=== PATIENT | male | born 1945 | race Hispanic/Latino ===

== ENCOUNTER 2016-05-14 12:36 | Emergency (ER) | payer MEDICARE ==
[2016-05-14 13:07] VITALS: BP 150/72; RESP 16; TEMP 98.6; O2SAT 99
[2016-05-14] MEDS ORDERED: Promethazine/Cod 6.25mg-10mg/5ml Syr UD PO STA (13:27)
[2016-05-14] MEDS ORDERED: Promethazine/Cod 6.25mg-10mg/5ml Syr UD ONE (13:36)
[2016-05-14 13:55] LABS: BASO # 0.1 K/uL (0.0-0.2); BASO % 0.7 % (0.0-2.0); EOS # 0.2 K/uL (0.0-0.7); EOS % 2.2 % (0.0-4.0); HEMATOCRIT 35.7 % (35.0-51.0); LYMPH # 2.1 K/uL (1.0-4.3); LYMPH % 20.1 % (20.0-40.0); MEAN CELL VOLUME 91.4 fl (80.0-94.0); MEAN CORPUSCULAR HEMOGLOBIN 29.7 pg (27.0-31.0); MEAN CORPUSCULAR HGB CONC 32.5 g/dL (33.0-37.0); MEAN PLATELET VOLUME 7.9 fl (7.2-11.7); MONO # 1.2 K/uL (0.0-0.8); MONO % 11.1 % (0.0-10.0); NEUT % 65.9 % (50.0-75.0); RED CELL DISTRIBUTION WIDTH 14.5 % (11.5-14.5); WHITE BLOOD COUNT 10.6 K/uL (4.8-10.8)
--- NOTE | 2016-05-14 13:59 | ED PDOC ---
HPI: Chest Pain Time Seen by Provider: 05/14/16 13:06 Chief Complaint (Nursing): Chest Pain Chief Complaint (Provider): Chest pain History Per: Patient History/Exam Limitations: no limitations Onset/Duration Of Symptoms: Days (5x) Current Symptoms Are (Timing): Still Present Severity: Moderate Associated Symptoms: denies: Dyspnea, Syncope Additional Complaint(s): 70 year old male patient with a pertinent medical history of HTN and diabetes presents to the ED with complaints of left sided chest pain and a cough that started 5x days ago. He reports that he has phlegm, and his cough is productive of green sputum. The chest pain worsens when he coughs. He denies having shortness of breath, dizziness, syncope, and leg swelling. PMD: [facility] Past Medical History Reviewed: Historical Data, Nursing Documentation, Vital Signs Vital Signs: Last Vital Signs Temp 98.6 F 05/14/16 13:00 Pulse 77 05/14/16 16:24 Resp 16 05/14/16 13:00 BP 150/72 05/14/16 13:00 Pulse Ox 99 05/14/16 16:24 - Medical History PMH: Diabetes (type I and II), HTN, Hypercholesterolemia, Chronic Kidney Disease Denies: CAD, CVA - Surgical History Surgical History: Appendectomy Denies: CABG - Family History Family History: States: Unknown Family Hx - Social History Alcohol: None Drugs: Denies - Home Medications Home Medications: Ambulatory Orders Medication Instructions Recorded Ciprofloxacin HCl [Cipro] 500 mg PO BID #14 tab 12/13/14 SITagliptin [Januvia] 50 mg PO DAILY #0 tab 12/13/14 cloNIDine [clonidine HCl] 0.1 mg PO BID #0 tab 12/13/14 Diphenhydramine Hydrochlorid 50 mg PO Q6 #20 cap 01/04/15 [Benadryl] Albuterol HFA [Ventolin HFA 90 2 puff IH [id number] PRN #1 inh 05/14/16 mcg/actuation (8 g)] Nitrofurantoin Macrocrystals 100 mg PO BID #14 cap 05/14/16 [Macrobid] Promethazine/Codeine 5 ml PO Q6 #100 ml 05/14/16 [Phenergan/Codeine Oral Syrup] - Allergies Allergies/Adverse Reactions: Allergies Allergy/AdvReac Type Severity Reaction Status Date / Time No Known Allergies Allergy Verified 03/10/15 19:00 DEION Risk Score for UA/NSTEMI - DEION Risk Score Age > 64: YES 3 or more CAD Risk Factors: YES Known CAD (Stenosis greater than 50%): NO Aspirin use in past 7 days: NO Severe Angina: NO EKG ST changes greater than 0.5mm: NO Positive Cardiac Marker: NO DEION Score: 2 Risk %: 8% Wells Criteria for PE - Wells Criteria for Pulmonary Embolism Clinical Signs and Symptoms of DVT: No P.E is #1 Diagnosis, or Equally Likely: No Heart Rate >100: No Immobilization at least 3 days;Surgery previous 4 weeks: No Previous, objectively diagnosed PE or DVT: No Hemoptysis: No Malignancy w/treatment within 6 months, or palliative: No Total Score: 0 Review of Systems ROS Statement: Except As Marked, All Systems Reviewed And Found Negative Constitutional: Negative for: Fever Cardiovascular: Positive for: Chest Pain Respiratory: Positive for: Cough, Sputum (green). Negative for: Shortness of Breath Musculoskeletal: Negative for: Leg Pain (no leg swelling) Neurological: Negative for: Dizziness, Other (syncope) Physical Exam - Reviewed Nursing Documentation Reviewed: Yes Vital Signs Reviewed: Yes - Physical Exam Appears: Positive for: Well, Non-toxic, No Acute Distress Head Exam: Positive for: ATRAUMATIC, NORMOCEPHALIC Skin: Positive for: Normal Color, Warm, Dry Cardiovascular/Chest: Positive for: Regular Rate, Rhythm. Negative for: Chest Non Tender (left side chest wall is tender to palpation) Respiratory: Positive for: Normal Breath Sounds. Negative for: Respiratory Distress Gastrointestinal/Abdominal: Positive for: Normal Exam, Soft. Negative for: Tenderness Extremity: Positive for: Normal ROM. Negative for: Tenderness (no leg tenderness), Swelling (no leg swelling) Neurologic/Psych: Positive for: Alert, Oriented (3x) - Laboratory Results Result Diagrams: 05/14/16 13:45 05/14/16 13:45 Urine dip results: Positive for: Leukocyte Esterase, Blood - ECG ECG: Positive for: Interpreted By Me, Viewed By Me ECG Rhythm: Positive for: Normal QRS, Normal ST Segment, Sinus Rhythm. Negative for: ST/T Changes Rate: 77 O2 Sat by Pulse Oximetry: 99 (RA) Pulse Ox Interpretation: Normal - Radiology X-Ray: Viewed By Me, Read By Radiologist X-Ray Interpretation: No Acute Disease Medical Decision Making Medical Decision Makin:06 Initial impression: 70 year old male with chest pain and a cough. Differential diagnoses include but are not limited to bronchitis, pneumonia, and musculoskeletal chest pain. Less than likely but still considered: ACS Initial plan: * XRay chest 2 views * EKG * b-type natriuretic peptide * BMP * troponin I * udip * CBC with differential * phenergan/codeine 5ml PO * toradol 30mg IM * US transvaginal * reevaluation Scribe Attestation: Documented by Maria Luisa Manzo, acting as a scribe for Angelina Quezada MD. Provider Scribe Attestation: All medical record entries made by the Scribe were at my direction and personally dictated by me. I have reviewed the chart and agree that the record accurately reflects my personal performance of the history, physical exam, medical decision making, and the department course for this patient. I have also personally directed, reviewed, and agree with the discharge instructions and disposition. Disposition - Clinical Impression Clinical Impression: UTI (urinary tract infection), Chest pain - Patient ED Disposition Is Patient to be Admitted: No Doctor Will See Patient In The: Office Counseled Patient/Family Regarding: Studies Performed, Diagnosis, Need For Followup - Disposition Referrals: Zelalem Lewis MD [Family Provider] - Disposition: Routine/Home Disposition Time: 16:40 Condition: GOOD Additional Instructions: Follow up with your PCP in 2-3 days. Return for worsening. Prescriptions: Albuterol HFA [Ventolin HFA 90 mcg/actuation (8 g)] 2 puff IH [id number] PRN #1 inh PRN Reason: Cough Nitrofurantoin Macrocrystals [Macrobid] 100 mg PO BID #14 cap Promethazine/Codeine [Phenergan/Codeine Oral Syrup] 5 ml PO Q6 #100 ml Instructions: Urinary Tract Infection in Men (ED), Acute Bronchitis (ED)
--- NOTE | 2016-05-14 13:59 | RAD ---
HISTORY: chest pain COMPARISON: No prior. TECHNIQUE: Chest PA and lateral FINDINGS: LUNGS: No active pulmonary disease. PLEURA: No significant pleural effusion identified. No pneumothorax apparent. CARDIOVASCULAR: Normal. OSSEOUS STRUCTURES: No significant abnormalities. VISUALIZED UPPER ABDOMEN: Normal. OTHER FINDINGS: None. IMPRESSION: No active disease.
[2016-05-14 14:04] LABS: CALCIUM 9.2 mg/dL (8.4-10.2); POTASSIUM 4.9 MMOL/L (3.6-5.0)
[2016-05-14 14:16] LABS: TROPONIN I 0.014 ng/mL (0.00-0.120)
[2016-05-14 14:41] VITALS: PULSE 77
--- NOTE | 2016-05-15 08:20 | CARD ---
APPROVED REPORT EKG Measurement Heart [id number] OH [id number] <Conclusion> Normal sinus rhythm Left axis deviation Abnormal ECG
== END 2016-05-14 16:51 | disposition home or self-care (01) ==
LOC: H.ER 12:36
DX: R07.9 Chest pain, unspecified (principal); N39.0 Urinary tract infection, site not specified; E78.00 Pure hypercholesterolemia, unspecified; I12.9 Hypertensive chronic kidney disease with stage 1 through stage 4 chronic kidney disease, or unspecified chronic kidney disease; E10.9 Type 1 diabetes mellitus without complications; Z79.4 Long term (current) use of insulin; N18.9 Chronic kidney disease, unspecified; R05 Cough
CPT/HCPCS: 71020; 80048; 83880; 84484; 85025; 93005; 96372; 99283; J1885

== ENCOUNTER 2016-12-10 06:26 | Observation (INO) | payer MEDICARE, MEDICAID ==
[2016-12-10] MEDS ORDERED: Sodium Chloride 0.9% 500 ML IV STA (07:35)
--- NOTE | 2016-12-10 07:39 | ED PDOC ---
HPI: Chest Pain History Per: Patient History/Exam Limitations: no limitations <Rajan Dominguez - Last Filed: 12/10/16 09:11> <Cassius Townsend - Last Filed: 12/10/16 09:25> Time Seen by Provider: 12/10/16 07:16 Chief Complaint (Nursing): Chest Pain Additional Complaint(s): 71 y/o M with a PMHx of HTN, DM and HLD complaining of chest pain that began 2 days ago, is constant, pressure-like, sub-sternal, non-radiating and aggravated with movement. Pt reports feeling anxious about family in [place]. Pt denies recent trauma, fever, SOB, cough, abdominal pain, N/V, acid reflux or change in bowel movement. NKDA PMHX: HTN, DM, HLD, BPH and nephropathy. PSHx: appendectomy in 2001. FHx: extensive Hx of HTN and DM. SHx: No tobacco, alcohol or recreational drugs. (Rjaan Dominguez) Supervising Attending Note <Rajan Dominguez - Last Filed: 12/10/16 09:11> - Supervising Attending Note The Documented history was done by the: Physician Offset Duplicating Machine Operator The documented physical exam was done by the: Physician Offset Duplicating Machine Operator The documented procedures were done by the: Physician Offset Duplicating Machine Operator - Attestation: I have personally seen and examined this patient.: Yes I have fully participated in the care of the patient.: Yes I have reviewed all pertinent clinical information: Yes <Cassius Townsend - Last Filed: 12/10/16 09:25> - Notes: Notes:: Chest pain 2 days (Cassius Townsend) Past Medical History - Medical History PMH: Diabetes (type I and II), HTN, Hypercholesterolemia, Chronic Kidney Disease Denies: CAD, CVA - Surgical History Surgical History: Appendectomy Denies: CABG - Family History Family History: States: Unknown Family Hx <Rajan Dominguez - Last Filed: 12/10/16 09:11> <Cassius Townsend - Last Filed: 12/10/16 09:25> Vital Signs: Last Vital Signs Temp 98.4 F 12/10/16 06:39 Pulse 73 12/10/16 06:39 Resp 16 12/10/16 06:39 BP 157/55 H 12/10/16 06:39 Pulse Ox 99 12/10/16 09:13 - Home Medications Home Medications: Ambulatory Orders Medication Instructions Recorded SITagliptin [Januvia] 50 mg PO DAILY #0 tab 12/13/14 cloNIDine [clonidine HCl] 0.1 mg PO BID #0 tab 12/13/14 Albuterol HFA [Ventolin HFA 90 2 puff IH [id number] PRN #1 inh 05/14/16 mcg/actuation (8 g)] - Allergies Allergies/Adverse Reactions: Allergies Allergy/AdvReac Type Severity Reaction Status Date / Time No Known Allergies Allergy Verified 03/10/15 19:00 Curb-65 Severity Score - CURB-65 Severity Score Confusion: No Respiratory Rate greater than/equal to 30: No Systolic BP <90 or Diastolic BP less than/equal 60mmHg: No Age >64: Yes Curb-65 Score: 1 Percentage 30-day mortality: 2.7% <Rajan Dominguez - Last Filed: 12/10/16 09:11> Wells Criteria for PE - Wells Criteria for Pulmonary Embolism Clinical Signs and Symptoms of DVT: No P.E is #1 Diagnosis, or Equally Likely: No Heart Rate >100: No Immobilization at least 3 days;Surgery previous 4 weeks: No Previous, objectively diagnosed PE or DVT: No Hemoptysis: No Malignancy w/treatment within 6 months, or palliative: No Total Score: 0 <Rajan Dominguez - Last Filed: 12/10/16 09:11> Review of Systems Constitutional: Negative for: Fever, Weakness, Malaise Eyes: Negative for: Pain ENT: Negative for: Ear Pain, Nose Congestion, Throat Pain Cardiovascular: Positive for: Chest Pain. Negative for: Palpitations, Light Headedness Respiratory: Negative for: Cough, Shortness of Breath, Hemoptysis, SOB with Exertion Gastrointestinal: Negative for: Nausea, Vomiting, Abdominal Pain, Diarrhea, Constipation Genitourinary Male: Negative for: Dysuria, Frequency Musculoskeletal: Negative for: Neck Pain, Shoulder Pain, Arm Pain Skin: Negative for: Rash Neurological: Negative for: Weakness, Numbness, Change in Speech, Confusion, Dizziness Psych: Positive for: Anxiety. Negative for: Psychosis, Suicidal ideation, Withdrawal <Rajan Dominguez Last Filed: 12/10/16 09:11> Cardiovascular: Positive for: Chest Pain <Cassius Townsend - Last Filed: 12/10/16 09:25> Physical Exam - Reviewed Vital Signs Reviewed: Yes - Physical Exam Appears: Positive for: Well, Non-toxic, No Acute Distress Head Exam: Positive for: ATRAUMATIC, NORMAL INSPECTION Skin: Positive for: Normal Color Eye Exam: Positive for: Normal appearance, PERRL ENT: Positive for: Normal ENT Inspection Neck: Positive for: Normal, Supple Cardiovascular/Chest: Positive for: Regular Rate, Rhythm Respiratory: Positive for: Normal Breath Sounds Gastrointestinal/Abdominal: Positive for: Normal Exam, Bowel Sounds, Soft. Negative for: Tenderness, Distended, Guarding Neurologic/Psych: Positive for: Alert, Oriented <Rajan Dominguez - Last Filed: 12/10/16 09:11> - Physical Exam Cardiovascular/Chest: Positive for: Regular Rate, Rhythm Respiratory: Positive for: Normal Breath Sounds <Cassius Townsend - Last Filed: 12/10/16 09:25> - Laboratory Results Result Diagrams: 12/10/16 07:30 12/10/16 07:30 - ECG O2 Sat by Pulse Oximetry: 99 <Rajan Dominguez - Last Filed: 12/10/16 09:11> - Laboratory Results Result Diagrams: 12/10/16 07:30 12/10/16 07:30 Interpretation Of Abn Labs: 5.3 k; elevated bun and cr - ECG ECG: Positive for: Interpreted By Me, Viewed By Me ECG Rhythm: Positive for: Normal QRS, Normal ST Segment, Sinus Rhythm Pulse Ox Interpretation: Normal - Radiology X-Ray: Interpreted by Me, Viewed By Me X-Ray Interpretation: No Acute Disease <Cassius Townsend - Last Filed: 12/10/16 09:25> - Progress ED Course And Treament: 924: Stable. AAOx3. Spoke with Ole. Will admit tele obs. Pain free. ( Cassius Townsend) Medical Decision Making <Rajan Dominguez - Last Filed: 12/10/16 09:11> <Cassius Townsend - Last Filed: 12/10/16 09:25> Medical Decision Makin71 y/o M with a PMHx of HTN, DM and HLD c/o chest pain. Plan: --EKG --Troponin --CBC --CMP --Coagulation profile --Chest X ray --Aspirin --IV NSS 9% (Rajan Dominguez) Disposition <Rajan Dominguez - Last Filed: 12/10/16 09:11> - Patient ED Disposition Is Patient to be Admitted: Yes Counseled Patient/Family Regarding: Studies Performed, Diagnosis - Disposition Disposition Time: 09:25 - Pt Status Changed To: Hospital Disposition Of: Observation - POA Present On Arrival: None Core Measure Indicators: Chest Pain <Cassius Townsend - Last Filed: 12/10/16 09:25> - Clinical Impression Clinical Impression: Acute chest pain, Hyperkalemia - Disposition Condition: FAIR
[2016-12-10 07:54] LABS: BASO # 0.1 K/uL (0.0-0.2); EOS # 0.7 K/uL (0.0-0.7); EOS % 7.4 % (0.0-4.0); HEMATOCRIT 33.7 % (35.0-51.0); LYMPH # 1.7 K/uL (1.0-4.3); LYMPH % 18.3 % (20.0-40.0); MEAN CELL VOLUME 90.9 fl (80.0-94.0); MEAN CORPUSCULAR HEMOGLOBIN 30.1 pg (27.0-31.0); MEAN CORPUSCULAR HGB CONC 33.1 g/dL (33.0-37.0); MEAN PLATELET VOLUME 8.3 fl (7.2-11.7); MONO # 1.1 K/uL (0.0-0.8); NEUT # 5.7 K/uL (1.8-7.0); NEUT % 61.3 % (50.0-75.0); NRBC % 0.1 % (0.0-0.0); RED CELL DISTRIBUTION WIDTH 13.8 % (11.5-14.5); WHITE BLOOD COUNT 9.2 K/uL (4.8-10.8)
[2016-12-10 08:09] LABS: ALB/GLOB RATIO 1.3 (1.0-2.1); BILIRUBIN,TOTAL 0.4 mg/dl (0.2-1.3); CALCIUM 9.8 mg/dL (8.4-10.2); POTASSIUM 5.3 MMOL/L (3.6-5.0); TOTAL PROTEIN 8.3 G/DL (6.3-8.2)
[2016-12-10 08:23] LABS: PARTIAL THROMBOPLASTIN TIME 29.3 Seconds (25.6-37.1); TROPONIN I 0.012 ng/mL (0.00-0.120)
[2016-12-10] MEDS ORDERED: Sod Polystyrene Sulf 15 gm/60 ml Susp PO STA (09:23)
[2016-12-10] MEDS ORDERED: Albuterol 0.083% Inhal Sol (2.5 mg/3 mL) UD INH STA (09:23)
[2016-12-10] MEDS ORDERED: Albuterol-Ipratrop 3 mg / 0.5 (3 ml) UD ONE (09:41)
[2016-12-10] MEDS ORDERED: Sod Polystyrene Sulf 15 gm/60 ml Susp ONE (09:41)
--- NOTE | 2016-12-10 10:37 | CP.PCM.HP ---
History of Present Illness - History of Present Illness History of Present Illness: pt admittedfor cpx 2 days. reports incr w/ movement and is anxious about family probelms. no pain at present. bw noted. acute on chronic ckd noted. hyperkalemia noted. no f/c, n/v/d. neprhoa nd cardio consults pending trop noted Present on Admission - Present on Admission Any Indicators Present on Admission: Yes History of Uncontrolled Diabetes: Yes Review of Systems - Cardiovascular Cardiovascular: As Per HPI, Chest Pain with Activity Past Patient History - Infectious Disease Hx of Infectious Diseases: None - Past Medical History & Family History Past Medical History?: Yes - Past Social History Smoking Status: Former Smoker - CARDIAC Hx Cardiac Disorders: Yes - PULMONARY Hx Respiratory Disorders: Yes - RENAL Hx Chronic Kidney Disease: Yes - ENDOCRINE/METABOLIC Hx Endocrine Disorders: Yes - MUSCULOSKELETAL/RHEUMATOLOGICAL Hx Falls: No - PSYCHIATRIC Hx Substance Use: No - SURGICAL HISTORY Hx Appendectomy: Yes Hx Coronary Artery Bypass Graft: No - ANESTHESIA Hx Anesthesia: Yes Hx Anesthesia Reactions: No Meds Allergies/Adverse Reactions: Allergies Allergy/AdvReac Type Severity Reaction Status Date / Time No Known Allergies Allergy Verified 03/10/15 19:00 Physical Exam - Constitutional Appears: Well, Non-toxic, No Acute Distress - Head Exam Head Exam: ATRAUMATIC, NORMAL INSPECTION, NORMOCEPHALIC - Eye Exam Eye Exam: EOMI, Normal appearance, PERRL Pupil Exam: NORMAL ACCOMODATION, PERRL - ENT Exam ENT Exam: Mucous Membranes Moist, Normal Exam - Neck Exam Neck exam: Positive for: Normal Inspection - Respiratory Exam Respiratory Exam: Clear to Auscultation Bilateral, NORMAL BREATHING PATTERN - Cardiovascular Exam Cardiovascular Exam: REGULAR RHYTHM, RRR, +S1 - GI/Abdominal Exam GI & Abdominal Exam: Normal Bowel Sounds, Soft. absent: Tenderness - Extremities Exam Extremities exam: Positive for: full ROM, normal capillary refill, normal inspection, pedal pulses present - Back Exam Back exam: FULL ROM, NORMAL INSPECTION - Neurological Exam Neurological exam: Alert, CN II-XII Intact, Normal Gait, Oriented x3, Reflexes Normal - Psychiatric Exam Psychiatric exam: Normal Affect, Normal Mood - Skin Skin Exam: Dry, Intact, Normal Color, Warm Results - Vital Signs Recent Vital Signs: Last Vital Signs Temp 98.4 F 12/10/16 06:39 Pulse 83 12/10/16 10:15 Resp 18 12/10/16 10:15 BP 160/70 H 12/10/16 10:15 Pulse Ox 98 12/10/16 10:14 - Labs Result Diagrams: 12/10/16 07:30 12/10/16 07:30 Labs: Laboratory Results - last 24 hr 12/10/16 12/10/16 12/10/16 07:30 07:30 07:30 WBC 9.2 RBC 3.70 L Hgb 11.2 L Hct 33.7 L MCV 90.9 MCH 30.1 MCHC 33.1 RDW 13.8 Plt Count 398 MPV 8.3 Neut % (Auto) 61.3 Lymph % (Auto) 18.3 L Hawkins % (Auto) 12.0 H Eos % (Auto) 7.4 H Baso % (Auto) 1.0 Neut # 5.7 Lymph # 1.7 Hawkins # 1.1 H Eos # 0.7 Baso # 0.1 PT 10.8 INR 1.0 APTT 29.3 Sodium 143 Potassium 5.3 H Chloride 109 H Carbon Dioxide 20 L Anion Gap 19 BUN 61 H Creatinine 3.2 H Est GFR ( Amer) 23 Est GFR (Non-Af Amer) 19 Random Glucose 113 H Calcium 9.8 Total Bilirubin 0.4 AST 47 ALT 28 Alkaline Phosphatase 75 Troponin I 0.0120 Total Protein 8.3 H Albumin 4.8 Globulin 3.5 Albumin/Globulin Ratio 1.3 Assessment & Plan (1) DVT prophylaxis Assessment and Plan: scd nad aehose ambulation Status: Acute (2) Acute chest pain Assessment and Plan: trops x 3 cardio asa Status: Acute (3) Hyperkalemia Assessment and Plan: rec'd akyexalate in er nephro cmp [id number] Status: Acute (4) CKD (chronic kidney disease) Assessment and Plan: npehro trend bun/cr Status: Acute Decision To Admit - Pt Status Changed To: Hospital Disposition Of: Observation - . Bed Request Type: Telemetry Admitting Physician: Mckinley Lucio
[2016-12-10] MEDS: HCTZ/Losartan 12.5/50 Tab PO SCH (11:45)
--- NOTE | 2016-12-10 13:03 | RAD ---
HISTORY: dyspnea COMPARISON: No prior. FINDINGS: LUNGS: No active pulmonary disease. PLEURA: No significant pleural effusion identified, no pneumothorax apparent. CARDIOVASCULAR: Normal. OSSEOUS STRUCTURES: No significant abnormalities. VISUALIZED UPPER ABDOMEN: Normal. OTHER FINDINGS: None. IMPRESSION: No active disease.
--- NOTE | 2016-12-10 14:24 | CP.PCM.CON ---
History of Present Illness - History of Present Illness History of Present Illness: patietn seen/examined. will obtain serial cardiac enzymes. if negative will consider outpatient stress test. Past Patient History - Infectious Disease Hx of Infectious Diseases: None - Past Medical History & Family History Past Medical History?: Yes - Past Social History Smoking Status: Never Smoked - CARDIAC Hx Cardiac Disorders: Yes Hx Hypertension: Yes - PULMONARY Hx Respiratory Disorders: No - NEUROLOGICAL Hx Neurological Disorder: No - HEENT Hx HEENT Problems: No - RENAL Hx Chronic Kidney Disease: Yes - ENDOCRINE/METABOLIC Hx Endocrine Disorders: Yes Hx Diabetes Mellitus Type 2: Yes - HEMATOLOGICAL/ONCOLOGICAL Hx Blood Disorders: No - INTEGUMENTARY Hx Dermatological Problems: No - MUSCULOSKELETAL/RHEUMATOLOGICAL Hx Musculoskeletal Disorders: No Hx Falls: No - GASTROINTESTINAL Hx Gastrointestinal Disorders: No - GENITOURINARY/GYNECOLOGICAL Hx Genitourinary Disorders: No - PSYCHIATRIC Hx Psychophysiologic Disorder: No Hx Substance Use: No - SURGICAL HISTORY Hx Appendectomy: Yes Hx Coronary Artery Bypass Graft: No - ANESTHESIA Hx Anesthesia: Yes Hx Anesthesia Reactions: No Meds Allergies/Adverse Reactions: Allergies Allergy/AdvReac Type Severity Reaction Status Date / Time No Known Allergies Allergy Verified 03/10/15 19:00 - Medications Medications: Current Medications Amlodipine Besylate (Norvasc) 10 mg PO DAILY [facility] Aspirin (Aspirin Chewable) 81 mg PO DAILY [facility] Calcitriol (Rocaltrol) 0.25 mcg PO MWF [facility] Clonidine HCl (Catapres) 0.1 mg PO BID [facility] HCTZ/Losartan Potassium (Hyzaar 12.5 Mg-50 Mg) 2 tab PO DAILY [facility] Last Admin: 12/10/16 11:45 Dose: 2 tab Pioglitazone HCl (Actos) 15 mg PO DAILY [facility] Last Admin: 12/10/16 11:45 Dose: 15 mg Sodium Bicarbonate (Sodium Bicarbonate Tab) 1,300 mg PO BID [facility] Tamsulosin HCl (Flomax) 0.4 mg PO DAILY [facility] Last Admin: 12/10/16 11:44 Dose: 0.4 mg Results - Vital Signs Recent Vital Signs: Last Vital Signs Temp 97.9 F 12/10/16 12:30 Pulse 79 12/10/16 12:30 Resp 18 12/10/16 12:30 BP 166/69 H 12/10/16 12:30 Pulse Ox 99 12/10/16 12:30 - Labs Result Diagrams: 12/10/16 07:30 12/10/16 07:30 Labs: Laboratory Results - last 24 hr 12/10/16 12/10/16 12/10/16 07:30 07:30 07:30 WBC 9.2 RBC 3.70 L Hgb 11.2 L Hct 33.7 L MCV 90.9 MCH 30.1 MCHC 33.1 RDW 13.8 Plt Count 398 MPV 8.3 Neut % (Auto) 61.3 Lymph % (Auto) 18.3 L Chester % (Auto) 12.0 H Eos % (Auto) 7.4 H Baso % (Auto) 1.0 Neut # 5.7 Lymph # 1.7 Chester # 1.1 H Eos # 0.7 Baso # 0.1 PT 10.8 INR 1.0 APTT 29.3 Sodium 143 Potassium 5.3 H Chloride 109 H Carbon Dioxide 20 L Anion Gap 19 BUN 61 H Creatinine 3.2 H Est GFR ( Amer) 23 Est GFR (Non-Af Amer) 19 POC Glucose (mg/dL) Random Glucose 113 H Calcium 9.8 Total Bilirubin 0.4 AST 47 ALT 28 Alkaline Phosphatase 75 Troponin I 0.0120 Total Protein 8.3 H Albumin 4.8 Globulin 3.5 Albumin/Globulin Ratio 1.3 12/10/16 12:23 WBC RBC Hgb Hct MCV MCH MCHC RDW Plt Count MPV Neut % (Auto) Lymph % (Auto) Chester % (Auto) Eos % (Auto) Baso % (Auto) Neut # Lymph # Chester # Eos # Baso # PT INR APTT Sodium Potassium Chloride Carbon Dioxide Anion Gap BUN Creatinine Est GFR ( Amer) Est GFR (Non-Af Amer) POC Glucose (mg/dL) 161 H Random Glucose Calcium Total Bilirubin AST ALT Alkaline Phosphatase Troponin I Total Protein Albumin Globulin Albumin/Globulin Ratio
--- NOTE | 2016-12-10 14:25 | CP.PCM.CON ---
History of Present Illness - History of Present Illness History of Present Illness: I was asked to see patient by Dr Garza and Dr Lucio. Patient is a 71 year old male with PMH HTN, DM, reanl failure who presents with chest pain. He describes a right sided chest pain, worse with inspiration. The patient states this was his initial episode. He denies dyspnea with exertion. Review of Systems - Constitutional Constitutional: absent: As Per HPI, Anorexia, Chills, Daytime Sleepiness, Excessive Sweating, Fatigue, Fever, Frequent Falls, Headache, Increased Appetite , Lethargy, Malaise, Night Sweats, Snoring, Sleep Apnea, Weight Gain, Weight Loss, Weakness, Other - EENT Eyes: absent: As Per HPI, Blind Spots, Blurred Vision, Change in Vision, Decreased Night Vision, Diplopia, Discharge, Dry Eye, Exophthalmos, Floaters, Irritation, Itchy Eyes, Loss of Peripheral Vision, Pain, Photophobia, Requires Corrective Lenses, Sees Flashes, Spots in Vision, Tunnel Vision, Other Visual Disturbances, Loss of Vision, Other Ears: absent: As Per HPI, Decreased Hearing, Ear Discharge, Ear Pain, Tinnitus, Abnormal Hearing, Disequilibrium, Dizziness, Other Nose/Mouth/Throat: absent: As Per HPI, Epistaxis, Nasal Congestion, Nasal Discharge, Nasal Obstruction, Nasal Trauma, Nose Pain, Post Nasal Drip, Sinus Pain, Sinus Pressure, Bleeding Gums, Change in Voice, Dental Pain, Dry Mouth, Dysphagia, Halitosis, Hoarsness, Lip Swelling, Mouth Lesions, Mouth Pain, Odynophagia, Sore Throat, Throat Swelling, Tongue Swelling, Facial Pain, Neck Pain, Neck Mass, Other - Cardiovascular Cardiovascular: Chest Pain - Respiratory Respiratory: absent: As Per HPI, Cough, Dyspnea, Hemoptysis, Dyspnea on Exertion , Wheezing, Snoring, Stridor, Pain on Inspiration, Chest Congestion, Excessive Mucous Production, Change in Mucous Color, Pain with Coughing, Other - Gastrointestinal Gastrointestinal: absent: As Per HPI, Abdominal Pain, Belching, Bloating, Change in Bowel Habits, Change in Stool Character, Coffee Ground Emesis, Constipation, Cramping, Diarrhea, Dyspepsia, Dysphagia, Early Satiety, Excessive Flatus, Fecal Incontinence, Heartburn, Hematemesis, Hematochezia, Loose Stools, Melena, Nausea, Odynophagia, Temesmus, Vomiting, Other - Genitourinary Genitourinary: absent: As Per HPI, Change in Urinary Stream, Difficulty Urinating, Dysuria, Flank Pain, Hematuria, Pyuria, Nocturia, Urinary Incontinence, Urinary Frequency, Urinary Hesitance, Urinary Urgency, Voiding Freq/Small Amts, Freq UTI, Hx Renal/Bladder Calculi, Hx /Renal Surgery, Bladder Distension, Other - Musculoskeletal Musculoskeletal: absent: As Per HPI, Abnormal Gait, Arthralgias, Atrophy, Back Pain, Deformity, Joint Swelling, Limited Range of Motion, Loss of Height, Muscle Cramps, Muscle Weakness, Myalgias, Neck Pain, Numbness, Radiating Pain into Limb, Stiffness, Tingling, Other - Integumentary Integumentary: absent: As Per HPI, Acne, Alopecia, Bleeding Lesions, Change in Hair, Change in Nails, Change in Pigmentation, Changing Lesions, Dry Skin, Erythema, Furuncle, Hirsutism, Lesions, New Lesions, Non-Healing Lesions, Photosensitivity, Pruritus, Rash, Skin Pain, Skin Ulcer, Sores, Striae, Swelling , Unusual Bruising, Wounds, Jaundice, Other - Neurological Neurological: absent: As Per HPI, Abnormal Gait, Abnormal Hearing, Abnormal Movements, Abnormal Speech, Behavioral Changes, Burning Sensations, Confusion, Convulsions, Disequilibrium, Dizziness, Numbness, Focal Weakness, Frequent Falls , Headaches, Lack of Coordination, Loss of Vision, Memory Loss, Paresthesias, Radicular Pain, Restless Legs, Sensory Deficit, Syncope, Tingling, Tremor, Vertigo, Weakness, Other Visual Disturbances, Other - Psychiatric Psychiatric: absent: As Per HPI, Abnormal Sleep Pattern, Anhedonia, Anxiety, Auditory Hallucinations, Behavioral Changes, Change in Appetite, Change in Libido, Confusion, Depression, Difficulty Concentrating, Hallucinations, Homicidal Ideation, Hopelessness, Irritability, Memory Loss, Mood Swings, Panic Attacks, Paranoia, Suicidal Ideation, Visual Hallucinations, Tactile Hallucinations, Other - Endocrine Endocrine: absent: As Per HPI, Change in Body Appearance, Change in Libido, Cold Intolorance, Deepening of Voice, Excessive Sweating, Fatigue, Flushing, Heat Intolorance, Increase in Ring/Shoe/Hat Size, Palpitations, Polydipsia, Polyphagia, Polyuria, Other - Hematologic/Lymphatic Hematologic: absent: As Per HPI, Easy Bleeding, Easy Bruising, Lymphadenopathy, Other Past Patient History - Infectious Disease Hx of Infectious Diseases: None - Past Medical History & Family History Past Medical History?: Yes - Past Social History Smoking Status: Never Smoked - CARDIAC Hx Cardiac Disorders: Yes Hx Hypertension: Yes - PULMONARY Hx Respiratory Disorders: No - NEUROLOGICAL Hx Neurological Disorder: No - HEENT Hx HEENT Problems: No - RENAL Hx Chronic Kidney Disease: Yes - ENDOCRINE/METABOLIC Hx Endocrine Disorders: Yes Hx Diabetes Mellitus Type 2: Yes - HEMATOLOGICAL/ONCOLOGICAL Hx Blood Disorders: No - INTEGUMENTARY Hx Dermatological Problems: No - MUSCULOSKELETAL/RHEUMATOLOGICAL Hx Musculoskeletal Disorders: No Hx Falls: No - GASTROINTESTINAL Hx Gastrointestinal Disorders: No - GENITOURINARY/GYNECOLOGICAL Hx Genitourinary Disorders: No - PSYCHIATRIC Hx Psychophysiologic Disorder: No Hx Substance Use: No - SURGICAL HISTORY Hx Appendectomy: Yes Hx Coronary Artery Bypass Graft: No - ANESTHESIA Hx Anesthesia: Yes Hx Anesthesia Reactions: No Meds Allergies/Adverse Reactions: Allergies Allergy/AdvReac Type Severity Reaction Status Date / Time No Known Allergies Allergy Verified 03/10/15 19:00 - Medications Medications: Current Medications Amlodipine Besylate (Norvasc) 10 mg PO DAILY [facility] Aspirin (Aspirin Chewable) 81 mg PO DAILY [facility] Calcitriol (Rocaltrol) 0.25 mcg PO MWF [facility] Clonidine HCl (Catapres) 0.1 mg PO BID [facility] HCTZ/Losartan Potassium (Hyzaar 12.5 Mg-50 Mg) 2 tab PO DAILY [facility] Last Admin: 12/10/16 11:45 Dose: 2 tab Pioglitazone HCl (Actos) 15 mg PO DAILY [facility] Last Admin: 12/10/16 11:45 Dose: 15 mg Sodium Bicarbonate (Sodium Bicarbonate Tab) 1,300 mg PO BID [facility] Tamsulosin HCl (Flomax) 0.4 mg PO DAILY [facility] Last Admin: 12/10/16 11:44 Dose: 0.4 mg Physical Exam - Constitutional Appears: Non-toxic - Head Exam Head Exam: NORMAL INSPECTION - Eye Exam Eye Exam: Normal appearance - ENT Exam ENT Exam: Mucous Membranes Moist - Neck Exam Neck exam: Positive for: Full Rom - Respiratory Exam Respiratory Exam: NORMAL BREATHING PATTERN - Cardiovascular Exam Cardiovascular Exam: REGULAR RHYTHM - GI/Abdominal Exam GI & Abdominal Exam: Normal Bowel Sounds - Rectal Exam Rectal Exam: Deferred - Extremities Exam Extremities exam: Negative for: pedal edema - Back Exam Back exam: NORMAL INSPECTION - Neurological Exam Neurological exam: Alert, Oriented x3 - Psychiatric Exam Psychiatric exam: Normal Affect - Skin Skin Exam: Normal Color Results - Vital Signs Recent Vital Signs: Last Vital Signs Temp 97.9 F 12/10/16 12:30 Pulse 79 12/10/16 12:30 Resp 18 12/10/16 12:30 BP 166/69 H 12/10/16 12:30 Pulse Ox 99 12/10/16 12:30 - Labs Result Diagrams: 12/11/16 07:20 12/11/16 06:00 Labs: Laboratory Results - last 24 hr 12/10/16 12/10/16 12/10/16 07:30 07:30 07:30 WBC 9.2 RBC 3.70 L Hgb 11.2 L Hct 33.7 L MCV 90.9 MCH 30.1 MCHC 33.1 RDW 13.8 Plt Count 398 MPV 8.3 Neut % (Auto) 61.3 Lymph % (Auto) 18.3 L [place] % (Auto) 12.0 H Eos % (Auto) 7.4 H Baso % (Auto) 1.0 Neut # 5.7 Lymph # 1.7 [place] # 1.1 H Eos # 0.7 Baso # 0.1 PT 10.8 INR 1.0 APTT 29.3 Sodium 143 Potassium 5.3 H Chloride 109 H Carbon Dioxide 20 L Anion Gap 19 BUN 61 H Creatinine 3.2 H Est GFR ( Amer) 23 Est GFR (Non-Af Amer) 19 POC Glucose (mg/dL) Random Glucose 113 H Calcium 9.8 Total Bilirubin 0.4 AST 47 ALT 28 Alkaline Phosphatase 75 Troponin I 0.0120 Total Protein 8.3 H Albumin 4.8 Globulin 3.5 Albumin/Globulin Ratio 1.3 12/10/16 12:23 WBC RBC Hgb Hct MCV MCH MCHC RDW Plt Count MPV Neut % (Auto) Lymph % (Auto) [place] % (Auto) Eos % (Auto) Baso % (Auto) Neut # Lymph # [place] # Eos # Baso # PT INR APTT Sodium Potassium Chloride Carbon Dioxide Anion Gap BUN Creatinine Est GFR ( Amer) Est GFR (Non-Af Amer) POC Glucose (mg/dL) 161 H Random Glucose Calcium Total Bilirubin AST ALT Alkaline Phosphatase Troponin I Total Protein Albumin Globulin Albumin/Globulin Ratio - EKG Data EKG Interpreted by: Myself EKG shows normal: Sinus rhythm Assessment & Plan (1) Chest pain Assessment and Plan: patient has risk factors for CAD. Recommend serial cardiac enzymes. If negative, patient can be discharged to home, and continue with outpatient work up (stress test). recommend ASA 81 mg daily Status: Acute (2) CKD (chronic kidney disease) Assessment and Plan: renal eval Status: Acute (3) HTN (hypertension) Assessment and Plan: BP control. avoid nephrotoxic agents Status: Acute
--- NOTE | 2016-12-10 17:29 | CP.PCM.CON ---
History of Present Illness - History of Present Illness History of Present Illness: pt is seen and examined, full consult is dictated#[id number] 1. htn 2. CKD-4 3. Type-2 dm 4. rt sided chest discomfort Past Patient History - Infectious Disease Hx of Infectious Diseases: None - Past Medical History & Family History Past Medical History?: Yes - Past Social History Smoking Status: Never Smoked - CARDIAC Hx Cardiac Disorders: Yes Hx Hypertension: Yes - PULMONARY Hx Respiratory Disorders: No - NEUROLOGICAL Hx Neurological Disorder: No - HEENT Hx HEENT Problems: No - RENAL Hx Chronic Kidney Disease: Yes - ENDOCRINE/METABOLIC Hx Endocrine Disorders: Yes Hx Diabetes Mellitus Type 2: Yes - HEMATOLOGICAL/ONCOLOGICAL Hx Blood Disorders: No - INTEGUMENTARY Hx Dermatological Problems: No - MUSCULOSKELETAL/RHEUMATOLOGICAL Hx Musculoskeletal Disorders: No Hx Falls: No - GASTROINTESTINAL Hx Gastrointestinal Disorders: No - GENITOURINARY/GYNECOLOGICAL Hx Genitourinary Disorders: No - PSYCHIATRIC Hx Psychophysiologic Disorder: No Hx Substance Use: No - SURGICAL HISTORY Hx Appendectomy: Yes Hx Coronary Artery Bypass Graft: No - ANESTHESIA Hx Anesthesia: Yes Hx Anesthesia Reactions: No Meds Allergies/Adverse Reactions: Allergies Allergy/AdvReac Type Severity Reaction Status Date / Time No Known Allergies Allergy Verified 03/10/15 19:00 - Medications Medications: Current Medications Amlodipine Besylate (Norvasc) 10 mg PO DAILY [facility] Aspirin (Aspirin Chewable) 81 mg PO DAILY [facility] Calcitriol (Rocaltrol) 0.25 mcg PO MWF [facility] Clonidine HCl (Catapres) 0.1 mg PO BID [facility] HCTZ/Losartan Potassium (Hyzaar 12.5 Mg-50 Mg) 2 tab PO DAILY [facility] Last Admin: 12/10/16 11:45 Dose: 2 tab Pioglitazone HCl (Actos) 15 mg PO DAILY [facility] Last Admin: 12/10/16 11:45 Dose: 15 mg Sodium Bicarbonate (Sodium Bicarbonate Tab) 1,300 mg PO BID [facility] Tamsulosin HCl (Flomax) 0.4 mg PO DAILY [facility] Last Admin: 12/10/16 11:44 Dose: 0.4 mg Results - Vital Signs Recent Vital Signs: Last Vital Signs Temp 98.5 F 12/10/16 16:54 Pulse 68 12/10/16 16:54 Resp 16 12/10/16 16:54 BP 149/65 12/10/16 16:54 Pulse Ox 99 12/10/16 16:54 - Labs Result Diagrams: 12/10/16 07:30 12/10/16 17:00 Labs: Laboratory Results - last 24 hr 12/10/16 12/10/16 12/10/16 07:30 07:30 07:30 WBC 9.2 RBC 3.70 L Hgb 11.2 L Hct 33.7 L MCV 90.9 MCH 30.1 MCHC 33.1 RDW 13.8 Plt Count 398 MPV 8.3 Neut % (Auto) 61.3 Lymph % (Auto) 18.3 L [place] % (Auto) 12.0 H Eos % (Auto) 7.4 H Baso % (Auto) 1.0 Neut # 5.7 Lymph # 1.7 [place] # 1.1 H Eos # 0.7 Baso # 0.1 PT 10.8 INR 1.0 APTT 29.3 Sodium 143 Potassium 5.3 H Chloride 109 H Carbon Dioxide 20 L Anion Gap 19 BUN 61 H Creatinine 3.2 H Est GFR ( Amer) 23 Est GFR (Non-Af Amer) 19 POC Glucose (mg/dL) Random Glucose 113 H Calcium 9.8 Total Bilirubin 0.4 AST 47 ALT 28 Alkaline Phosphatase 75 Troponin I 0.0120 Total Protein 8.3 H Albumin 4.8 Globulin 3.5 Albumin/Globulin Ratio 1.3 12/10/16 12/10/16 12:23 16:07 WBC RBC Hgb Hct MCV MCH MCHC RDW Plt Count MPV Neut % (Auto) Lymph % (Auto) [place] % (Auto) Eos % (Auto) Baso % (Auto) Neut # Lymph # [place] # Eos # Baso # PT INR APTT Sodium Potassium Chloride Carbon Dioxide Anion Gap BUN Creatinine Est GFR ( Amer) Est GFR (Non-Af Amer) POC Glucose (mg/dL) 161 H 109 Random Glucose Calcium Total Bilirubin AST ALT Alkaline Phosphatase Troponin I Total Protein Albumin Globulin Albumin/Globulin Ratio
[2016-12-10 17:44] LABS: CALCIUM 9.1 mg/dL (8.4-10.2); POTASSIUM 4.9 MMOL/L (3.6-5.0)
[2016-12-10 18:05] LABS: TROPONIN I 0.013 ng/mL (0.00-0.120)
[2016-12-10] MEDS: Sodium Chloride 0.45% 1,000 ML IV SCH (18:15)
[2016-12-11 05:23] VITALS: RESP 18; O2SAT 98
[2016-12-11 07:26] LABS: BASO # 0.1 K/uL (0.0-0.2); BASO % 0.9 % (0.0-2.0); EOS # 0.6 K/uL (0.0-0.7); EOS % 5.7 % (0.0-4.0); HEMATOCRIT 29.4 % (35.0-51.0); LYMPH # 1.5 K/uL (1.0-4.3); LYMPH % 14.1 % (20.0-40.0); MEAN CELL VOLUME 90.9 fl (80.0-94.0); MEAN CORPUSCULAR HEMOGLOBIN 30.2 pg (27.0-31.0); MEAN CORPUSCULAR HGB CONC 33.2 g/dL (33.0-37.0); MEAN PLATELET VOLUME 8.6 fl (7.2-11.7); MONO # 1.1 K/uL (0.0-0.8); MONO % 10.7 % (0.0-10.0); NEUT # 7.1 K/uL (1.8-7.0); NEUT % 68.6 % (50.0-75.0); RED CELL DISTRIBUTION WIDTH 13.9 % (11.5-14.5); WHITE BLOOD COUNT 10.3 K/uL (4.8-10.8)
[2016-12-11 07:35] LABS: ALB/GLOB RATIO 1.2 (1.0-2.1); BILIRUBIN,TOTAL 0.1 mg/dl (0.2-1.3); CALCIUM 8.9 mg/dL (8.4-10.2); POTASSIUM 4.8 MMOL/L (3.6-5.0); TOTAL PROTEIN 6.5 G/DL (6.3-8.2)
[2016-12-11 07:53] VITALS: BP 147/61; PULSE 54; TEMP 97.7
[2016-12-11] MEDS: HCTZ/Losartan 12.5/50 Tab PO SCH (09:02)
--- NOTE | 2016-12-11 09:03 | CARD ---
APPROVED REPORT EKG Measurement Heart [id number] <Conclusion> Normal sinus rhythm Normal ECG
[2016-12-11] MEDS: Sodium Chloride 0.45% 1,000 ML IV SCH (09:04)
--- NOTE | 2016-12-11 11:27 | CP.PCM.PN ---
Subjective - Date & Time of Evaluation Date of Evaluation: 12/11/16 Time of Evaluation: 11:27 Objective - Vital Signs/Intake and Output Vital Signs (last 24 hours): Temp Pulse Resp BP Pulse Ox 97.7 F 54 L 18 147/61 98 12/11/16 07:52 12/11/16 09:03 12/11/16 07:52 12/11/16 09:03 12/11/16 07:52 Intake and Output: 12/11/16 12/11/16 06:59 18:59 Intake Total 1090 Output Total 800 Balance 290 - Medications Medications: Current Medications Amlodipine Besylate (Norvasc) 10 mg PO DAILY [facility] Last Admin: 12/11/16 09:03 Dose: 10 mg Aspirin (Aspirin Chewable) 81 mg PO DAILY [facility] Last Admin: 12/11/16 09:03 Dose: 81 mg Calcitriol (Rocaltrol) 0.25 mcg PO MWF [facility] Clonidine HCl (Catapres) 0.1 mg PO BID [facility] Last Admin: 12/11/16 09:03 Dose: 0.1 mg HCTZ/Losartan Potassium (Hyzaar 12.5 Mg-50 Mg) 2 tab PO DAILY [facility] Last Admin: 12/11/16 09:02 Dose: 2 tab Sodium Chloride (Sodium Chloride 0.45%) 1,000 mls @ 70 mls/hr IV .[id number] [facility] Stop: 12/11/16 18:24 Last Admin: 12/11/16 09:04 Dose: 70 mls/hr Pioglitazone HCl (Actos) 15 mg PO DAILY [facility] Last Admin: 12/11/16 09:03 Dose: 15 mg Sodium Bicarbonate (Sodium Bicarbonate Tab) 1,300 mg PO BID [facility] Last Admin: 12/11/16 09:02 Dose: 1,300 mg Tamsulosin HCl (Flomax) 0.4 mg PO DAILY [facility] Last Admin: 12/11/16 09:02 Dose: 0.4 mg - Labs Labs: 12/11/16 07:20 12/11/16 06:00 PT 10.8 Seconds (9.8-13.1) 12/10/16 07:30 INR 1.0 (0.9-1.2) 12/10/16 07:30 APTT 29.3 Seconds (25.6-37.1) 12/10/16 07:30 Assessment and Plan (1) DVT prophylaxis Status: Acute (2) Acute chest pain Status: Acute (3) Hyperkalemia Status: Acute (4) CKD (chronic kidney disease) Status: Acute
--- NOTE | 2016-12-11 12:26 | CP.PCM.DIS ---
Provider - Provider Date of Admission: 12/10/16 09:23 Attending physician: Mckinley Lucio MD Time Spent in preparation of Discharge (in minutes): 15 Diagnosis - Discharge Diagnosis (1) DVT prophylaxis Status: Acute (2) Acute chest pain Status: Acute (3) Hyperkalemia Status: Acute (4) CKD (chronic kidney disease) Status: Acute Hospital Course - Lab Results Lab Results: Most Recent Lab Values WBC 10.3 K/uL (4.8-10.8) 12/11/16 07:20 RBC 3.23 Mil/uL (4.40-5.90) L 12/11/16 07:20 Hgb 9.7 g/dL (12.0-18.0) L 12/11/16 07:20 Hct 29.4 % (35.0-51.0) L 12/11/16 07:20 MCV 90.9 fl (80.0-94.0) 12/11/16 07:20 MCH 30.2 pg (27.0-31.0) 12/11/16 07:20 MCHC 33.2 g/dL (33.0-37.0) 12/11/16 07:20 RDW 13.9 % (11.5-14.5) 12/11/16 07:20 Plt Count 343 K/uL (130-400) 12/11/16 07:20 MPV 8.6 fl (7.2-11.7) 12/11/16 07:20 Neut % (Auto) 68.6 % (50.0-75.0) 12/11/16 07:20 Lymph % (Auto) 14.1 % (20.0-40.0) L 12/11/16 07:20 [place] % (Auto) 10.7 % (0.0-10.0) H 12/11/16 07:20 Eos % (Auto) 5.7 % (0.0-4.0) H 12/11/16 07:20 Baso % (Auto) 0.9 % (0.0-2.0) 12/11/16 07:20 Neut # 7.1 K/uL (1.8-7.0) H 12/11/16 07:20 Lymph # 1.5 K/uL (1.0-4.3) 12/11/16 07:20 [place] # 1.1 K/uL (0.0-0.8) H 12/11/16 07:20 Eos # 0.6 K/uL (0.0-0.7) 12/11/16 07:20 Baso # 0.1 K/uL (0.0-0.2) 12/11/16 07:20 PT 10.8 Seconds (9.8-13.1) 12/10/16 07:30 INR 1.0 (0.9-1.2) 12/10/16 07:30 APTT 29.3 Seconds (25.6-37.1) 12/10/16 07:30 Sodium 143 mmol/l (132-148) 12/11/16 06:00 Potassium 4.8 MMOL/L (3.6-5.0) 12/11/16 06:00 Chloride 111 mmol/L (98-107) H 12/11/16 06:00 Carbon Dioxide 23 mmol/L (22-30) 12/11/16 06:00 Anion Gap 14 (10-20) 12/11/16 06:00 BUN 45 mg/dl (9-20) H 12/11/16 06:00 Creatinine 2.7 mg/dL (0.8-1.5) H 12/11/16 06:00 Est GFR ( Amer) 28 12/11/16 06:00 Est GFR (Non-Af Amer) 24 12/11/16 06:00 POC Glucose (mg/dL) 345 mg/dL (65-110) H 12/10/16 20:59 Random Glucose 95 mg/dL (75-110) 12/11/16 06:00 Calcium 8.9 mg/dL (8.4-10.2) 12/11/16 06:00 Total Bilirubin 0.1 mg/dl (0.2-1.3) L 12/11/16 06:00 AST 33 U/L (17-59) 12/11/16 06:00 ALT 31 U/L (21-72) 12/11/16 06:00 Alkaline Phosphatase 62 U/L (38-126) 12/11/16 06:00 Troponin I 0.0130 ng/mL (0.00-0.120) 12/10/16 23:30 Total Protein 6.5 G/DL (6.3-8.2) 12/11/16 06:00 Albumin 3.5 g/dL (3.5-5.0) D 12/11/16 06:00 Globulin 3.0 gm/dL (2.2-3.9) 12/11/16 06:00 Albumin/Globulin Ratio 1.2 (1.0-2.1) 12/11/16 06:00 Discharge Exam - Head Exam Head Exam: ATRAUMATIC, NORMAL INSPECTION, NORMOCEPHALIC - Eye Exam Eye Exam: EOMI, Normal appearance, PERRL Pupil Exam: NORMAL ACCOMODATION, PERRL - Respiratory Exam Respiratory Exam: Clear to PA & Lateral, NORMAL BREATHING PATTERN, UNREMARKABLE - Cardiovascular Exam Cardiovascular Exam: REGULAR RHYTHM, RRR, +S1 - GI/Abdominal Exam GI & Abdominal Exam: Normal Bowel Sounds, Soft, Unremarkable - Extremities Exam Extremities exam: full ROM, normal capillary refill, normal inspection, pedal pulses present - Back Exam Back exam: FULL ROM - Neurological Exam Neurological exam: Alert, CN II-XII Intact, Normal Gait, Oriented x3, Reflexes Normal - Psychiatric Exam Psychiatric exam: Normal Affect, Normal Mood - Skin Skin Exam: Dry, Intact, Normal Color, Warm Discharge Plan - Follow Up Plan Condition: FAIR Disposition: HOME/ ROUTINE Additional Instructions: final dx-ckd, cp FOLLOW UP WITH DR KABA AN OUTPATIENT. no compalints/distress. nof /c, n/v/d. bw noted. trops negative cleared by cardio/nehpro f/u rmg 2 days, rted prn, meds per med rec
--- NOTE | 2016-12-11 13:40 | CON ---
RENAL CONSULTATION REQUESTED BY: Dr. Mckinley Lucio. LOCATION: The patient is located in room #401, bed #2. REASON FOR CONSULTATION: Chronic kidney disease, for further evaluation. HISTORY OF PRESENT ILLNESS: Mr. Morgan is 71-year-old elderly male with a past medical history significant for a longstanding hypertension; type 2 diabetes; chronic kidney disease, stage IV, with baseline creatinine about 2.5 to 2.8 with GFR between 15 mL to 20 mL, who is followed in office, presented to the emergency room with chief complaints of right-sided chest pain, started yesterday evening. As per the patient, he was doing exercise, pulling the rope and started having pain on the right side of the chest, mostly infraaxillary area. Denies any radiation of the pain. Denies any nausea or vomiting. Denies any diaphoresis. Pain is worse with movement of the joints or movement of the body. Denies any fever or cough. PAST MEDICAL HISTORY: Significant for longstanding hypertension, type 2 diabetes, chronic kidney disease, secondary hyperparathyroidism with baseline creatinine of 2.5 to 2.8. PAST SURGICAL HISTORY: Denies. ALLERGIES: NO KNOWN DRUG ALLERGIES. SOCIAL HISTORY: Denies any smoking, alcohol or drugs. PERSONAL HISTORY: Single. No children. FAMILY HISTORY: Not significant. CURRENT MEDICATIONS: Include Actos 15 mg p.o. daily; aspirin 81 mg daily; clonidine 0.1 mg p.o. b.i.d.; Flomax 0.4 mg daily; hydrochlorothiazide and losartan, Hyzaar 12.5 mg/50 mg combination 2 tablets p.o. daily; amlodipine 10 mg p.o. daily; Rocaltrol 0.25 mcg 3 times a week; sodium bicarbonate 650 mg 2 tablets b.i.d. and IV fluids, normal saline 100 mL per hour. REVIEW OF SYSTEMS: Significant for right-sided chest discomfort. All other review of systems are reviewed and are negative. PHYSICAL EXAMINATION: VITAL SIGNS: Blood pressure 149/65, pulse 68, respirations 16, temperature 98.5, saturation 99%. Height 5 feet 6 inches and weight is 122 pounds. GENERAL: Mr. Morgan is a 71-year-old elderly male, moderately build, moderately nourished, not in acute distress. HEENT: Pupils are normally reactive to light and accommodation. Conjunctivae pink. Sclerae are anicteric. Tongue is moist. Trachea is midline. LUNGS: Symmetric on both sides. Bilateral breath sounds present. Clear to auscultation. CARDIOVASCULAR SYSTEM: [place] at the fifth intercostal space, midclavicular line. S1 an d S2 audible. No murmur or gallop. ABDOMEN: Normal in appearance. Soft, tympanic. No guarding. No rigidity. No hepatosplenomegaly. No abdominal bruits. CENTRAL NERVOUS SYSTEM: The patient is alert, awake, oriented x3. Nonfocal neuro examination. Cranial nerves II to XII grossly intact. Sensory and motor examination is within normal limits. EXTREMITIES: No cyanosis. No clubbing. No edema. Deep tendon reflexes are normal. LABORATORY DATA: Include as follows, as of 12/10/2016, WBC 9.2, hemoglobin 11.2, hematocrit is 33.7, platelets 398. PT 10.8, PTT 29.3. Sodium 143, potassium 5.3, chloride 109, CO2 of 20, BUN 61, creatinine 3.2, glucose 113, calcium 9.8, total bilirubin 0.4, AST 47, ALT 28, alkaline phosphatase 75. Troponin 0.012. Total protein 8.3, albumin is 4.8. Repeat labs as of 12/10/2016, sodium 145, potassium 4.9, chloride 111, CO2 of 23, BUN 51, creatinine 3.0, glucose 103, calcium 9.1. Second set of troponin is 0.013. Chest x-ray, no active disease. ASSESSMENT: Mr. Morgan is a 71-year-old elderly male with a history of longstanding hypertension; type 2 diabetes; chronic kidney disease, stage IV; secondary hyperparathyroidism, was admitted with chest discomfort on the right side after pulling with rope and increased BUN and creatinine. 1. Renal failure, [id number] kidney disease, stage IV, most likely secondary to diabetic nephropathy, cannot rule out underlying hypertensive nephrosclerosis. 2. Hypertension. 3. Mild hyperkalemia. 4. Type 2 diabetes. 5. Secondary hyperparathyroidism. PLAN: Change IV fluids normal saline to half-normal saline at 70 mL per hour and repeat BMP in a.m. and also continue cardiac enzymes q. 8 hours x3 as per the cardiology recommendations and stress test as an outpatient. Thank you for allowing me to participate in your patient's care. Alvin Steel MD [facility] # [id number]
== END 2016-12-11 12:10 | disposition home or self-care (01) ==
LOC: H.ER 06:26 → H.ERHOLD 09:23 → H.TEL 10:43
PROVIDERS: ADMIT Family Medicine; ATTEND Family Medicine
DX: R07.89 Other chest pain (principal); N18.4 Chronic kidney disease, stage 4 (severe); I12.9 Hypertensive chronic kidney disease with stage 1 through stage 4 chronic kidney disease, or unspecified chronic kidney disease; E87.5 Hyperkalemia; N25.81 Secondary hyperparathyroidism of renal origin; E11.21 Type 2 diabetes mellitus with diabetic nephropathy; E11.22 Type 2 diabetes mellitus with diabetic chronic kidney disease; Z87.891 Personal history of nicotine dependence
CPT/HCPCS: 36415; 71010; 80053; 82948; 84484; 85025; 85610; 85730; 93005; 94640; 99285; G0378; J7030; J7040

== ENCOUNTER 2017-10-21 17:07 | Emergency (ER) | payer MEDICAID, MEDICARE ==
[2017-10-21 17:29] VITALS: BP 139/60; PULSE 76; RESP 18; TEMP 98.6; O2SAT 99
--- NOTE | 2017-10-21 17:56 | ED PDOC ---
Upper Extremity Pain/Injury Time Seen by Provider: 10/21/17 17:37 Chief Complaint (Nursing): Upper Extremity Problem/Injury Chief Complaint (Provider): elbow swelling History Per: Patient History/Exam Limitations: no limitations Additional Complaint(s): Philip Morgan, a 71 year old male with no significant past medical history , presents to the emergency department with left elbow swelling. Patient states he has a history of this and has gotten an injection placed. He denies any falls or pain. No further medical complaints. Past Medical History Reviewed: Historical Data, Nursing Documentation, Vital Signs Vital Signs: Last Vital Signs Temp 98.6 F 10/21/17 17:28 Pulse 76 10/21/17 17:28 Resp 18 10/21/17 17:28 BP 139/60 10/21/17 17:28 Pulse Ox 99 10/21/17 17:28 - Medical History PMH: Diabetes (type I and II), HTN, Hypercholesterolemia, Chronic Kidney Disease Denies: CAD, CVA - Surgical History Surgical History: Appendectomy Denies: CABG - Family History Family History: States: Unknown Family Hx - Home Medications Home Medications: Ambulatory Orders Medication Instructions Recorded cloNIDine [Catapres] 0.1 mg PO BID #0 tab 12/13/14 Calcitriol 1 tab PO MWF 12/10/16 Olmesartan/Amlodipin/Hcthiazid 2 tab PO DAILY 12/10/16 [Tribenzor 20-5-12.5 mg Tablet] Pioglitazone [Actos] 15 mg PO DAILY 12/10/16 Sodium Bicarbonate 2 tab PO BID 12/10/16 Tamsulosin [Flomax] 0.4 mg PO DAILY 12/10/16 Aspirin [Aspirin Chewable] 81 mg PO DAILY chew 12/11/16 Naproxen 375 mg PO Q8 PRN #21 tablet 10/21/17 Omeprazole Magnesium [Prilosec Otc] 20 mg PO DAILY #7 tablet. 10/21/17 - Allergies Allergies/Adverse Reactions: Allergies Allergy/AdvReac Type Severity Reaction Status Date / Time No Known Allergies Allergy Verified 10/21/17 17:27 Review of Systems ROS Statement: Except As Marked, All Systems Reviewed And Found Negative Musculoskeletal: Positive for: Other (elbow swelling) Physical Exam - Reviewed Nursing Documentation Reviewed: Yes Vital Signs Reviewed: Yes - Physical Exam Appears: Positive for: Well, Non-toxic, No Acute Distress Cardiovascular/Chest: Positive for: Regular Rate, Rhythm Respiratory: Positive for: Normal Breath Sounds. Negative for: Respiratory Distress Extremity: Positive for: Normal ROM (with no pain or difficulty), Swelling ( posterior elbow). Negative for: Other (erythema) - ECG O2 Sat by Pulse Oximetry: 99 (RA) Pulse Ox Interpretation: Normal - Progress ED Course And Treament: xry of elbow: olecranon bone spur noted placed in shoulder sling Medical Decision Making Medical Decision Making: Time; 17:37 Initial Impression: elbow swelling Initial Plan: --Xray left elbow 3 views Scribe Attestation: Documented by Tabitha Chin, acting as a scribe for Ifrah Chahal PA-C. Provider Scribe Attestation: All medical record entries made by the Scribe were at my direction and personally dictated by me. I have reviewed the chart and agree that the record accurately reflects my personal performance of the history, physical exam, medical decision making, and the department course for this patient. I have also personally directed, reviewed, and agree with the discharge instructions and disposition. Disposition - Clinical Impression Clinical Impression: Bursitis, Olecranon bursitis of left elbow - Patient ED Disposition Is Patient to be Admitted: No - Disposition Referrals: Lynnette Lawrence MD [Staff Provider] - Disposition: Routine/Home Disposition Time: 18:23 Condition: FAIR Prescriptions: Naproxen 375 mg PO Q8 PRN #21 tablet PRN Reason: Pain, Moderate (4-7) Omeprazole Magnesium [Prilosec Otc] 20 mg PO DAILY #7 tablet. Instructions: Olecranon Bursitis (DC) Print Language: AFGHAN
--- NOTE | 2017-10-22 09:09 | RAD ---
Date of service: 10/21/2017 PROCEDURE: Radiographs of the left elbow. HISTORY: ELBOW SWELLING COMPARISON: No prior. FINDINGS: BONES: Normal. No fracture. JOINTS: Normal. No osteoarthritis. SOFT TISSUES: Normal. JOINT EFFUSION: None. OTHER FINDINGS: Olecranon spur. IMPRESSION: No fracture.
== END 2017-10-21 18:36 | disposition home or self-care (01) ==
LOC: H.ER 17:07
DX: M70.22 Olecranon bursitis, left elbow (principal); Z79.4 Long term (current) use of insulin; E78.00 Pure hypercholesterolemia, unspecified; I12.9 Hypertensive chronic kidney disease with stage 1 through stage 4 chronic kidney disease, or unspecified chronic kidney disease